=== PATIENT | male | born 1960 | race American Indian/Alaskan Native ===

== ENCOUNTER 2017-04-25 17:21 | Inpatient (IN) | payer MEDICAID, OTHER ==
--- NOTE | 2017-04-25 18:18 | C.PDOC ---
History Of Present Illness 56 year old male presents to the ED with complaints of chest pain beginning today that radiates to the left arm and hand. Patient also notes a "cramping" abdominal pain beginning a few days ago that is secondary to ulcers with nausea and vomiting. He states he has not taken his zantac. Patient admits to being at [facility] [place] earlier today for a "mental breakdown" when he began to feel chest pain while in the bathroom that he described as a 20/10 but became a 8/10 upon arrival to [facility] ED. He also admits to having 3 24oz beers today and suicidal ideations. Patient states he has not eaten in 8 days and wants to hurt himself by staving himself and he has done it before. He has a history of depression, HTN, CHF, Ulcers, Bipolar, Schizophrenia, and an NV in 2008. Patient denies any homicidal ideations or other complaints at this time. Time Seen by Provider: 04/25/17 17:48 Chief Complaint (Nursing): Chest Pain History Per: Patient History/Exam Limitations: no limitations Onset/Duration Of Symptoms: Hrs (chest pain began today ), Days (abdominal pain ) Current Symptoms Are (Timing): Still Present Past Medical History Reviewed: Historical Data, Nursing Documentation, Vital Signs Vital Signs: Last Vital Signs Temp 97.8 F 04/25/17 20:00 Pulse 94 H 04/25/17 20:00 Resp 16 04/25/17 20:00 BP 105/70 04/25/17 20:00 Pulse Ox 100 04/25/17 20:00 - Medical History PMH: Asthma, CHF, Gastritis, HTN, Seizures (last episode was 08/27/16) - [facility] Procedures DETOXIFICATION SERVICES FOR SUBSTANCE ABUSE TREATMENT (08/28/16) GROUP [employer] ANALYST FOR SUBSTANCE ABUSE TREATMENT, PSYCHOEDUCATION (08/28/16) Family History: States: Unknown Family Hx - Social History Hx Alcohol Use: Yes Hx Substance Use: Yes - Immunization History Hx Tetanus Toxoid Vaccination: No Hx Influenza Vaccination: No Hx Pneumococcal Vaccination: No Review Of Systems Constitutional: Negative for: Chills Cardiovascular: Positive for: Chest Pain, Palpitations Respiratory: Negative for: Cough Gastrointestinal: Positive for: Nausea, Vomiting, Abdominal Pain (epigastric pain ) Musculoskeletal: Positive for: Arm Pain (left arm pain radiating from chest pain ) Neurological: Positive for: Headache Psych: Positive for: Suicidal ideation Physical Exam - Physical Exam Appears: Non-toxic, No Acute Distress Skin: Warm, Dry Head: Atraumatic Eye(s): bilateral: Normal Inspection, PERRL, EOMI Oral Mucosa: Moist Neck: Supple Chest: Symmetrical, No Deformity Cardiovascular: Rhythm Regular Respiratory: Normal Breath Sounds (clear to ausculation bilaterally ), No Rales , No Rhonchi, No Stridor Gastrointestinal/Abdominal: Soft, Tenderness (epigastric tenderness), No Distention, No Guarding, No Rebound Extremity: Normal ROM, No Tenderness, No Calf Tenderness, Capillary Refill ( good capilarry refill, less than 2 seconds ), No Swelling, Other (bilateral pitting edema of the lower extremities ) Pulses: Left Dorsalis Pedis: Normal, Right Dorsalis Pedis: Normal Neurological/Psych: Oriented x3, Normal Speech, Normal Cognition, Normal Cranial Nerves, Normal Motor, Normal Sensation, Normal Reflexes Gait: Steady ED Course And Treatment - Laboratory Results Result Diagrams: 04/25/17 18:38 04/25/17 18:38 Lab Interpretation: Abnormal (etoh 299, tox neg) ECG: Interpreted By Me ECG Rhythm: Sinus Rhythm ECG Interpretation: Normal Rate From EC O2 Sat by Pulse Oximetry: 95 (room air ) Pulse Ox Interpretation: Normal - Radiology CXR: Interpreted by Me CXR Interpretation: Yes: No Acute Disease Reevaluation Time: 00:50 Reassessment Condition: Improved (calm, cooperative, napping.) Medical Decision Making Medical Decision Making: chest discomfort: costochondritis epigastric discomfort: gastritis/stomach ulcers psych: etoh abuse, malingering, ? suicidal 0100: pending Psych dispo, signed over to night MD Disposition Doctor Will See Patient In The: Office Counseled Patient/Family Regarding: Studies Performed, Diagnosis - Disposition Disposition Time: 01:00 Condition: GOOD - Clinical Impression Clinical Impression: Alcohol abuse, Suicidal ideation, Chest discomfort - Scribe Statement The provider has reviewed the documentation as recorded by the Scribjean Suh All medical record entries made by the Scribe were at my direction and personally dictated by me. I have reviewed the chart and agree that the record accurately reflects my personal performance of the history, physical exam, medical decision making, and the department course for this patient. I have also personally directed, reviewed, and agree with the discharge instructions and disposition. Physician Patient Turnover Patient Signed Over To: Ricky Mckinnon Handoff Comments: dispo per Crisis Evaluators.
[2017-04-25 18:52] LABS: BASO # 0.1 K/uL (0.0-0.2); EOS % 0.6 % (0.0-4.0); HEMATOCRIT 41.7 % (35.0-51.0); LYMPH # 1.6 K/uL (1.0-4.3); LYMPH % 52.6 % (20.0-40.0); MEAN CORPUSCULAR HEMOGLOBIN 33.1 pg (27.0-31.0); MEAN PLATELET VOLUME 8.3 fL (7.2-11.7); MONO # 0.5 K/uL (0.0-0.8); MONO % 15.3 % (0.0-10.0); NRBC % 0.1 % (0.0-2.0); RED CELL DISTRIBUTION WIDTH 14.5 % (11.5-14.5)
[2017-04-25 18:54] LABS: CHLORIDE 104 mmol/L (98-107); POTASSIUM 3.7 mmol/L (3.6-5.2); SODIUM 138 mmol/L (132-148)
[2017-04-25 18:56] LABS: BILIRUBIN,TOTAL 0.6 mg/dL (0.2-1.3); GFR AFRICAN-AMERICAN > 60; MEAN CELL VOLUME 100.5 fL (80.0-94.0)
[2017-04-25 18:57] LABS: ALB/GLOB RATIO 1.2 (1.0-2.1); ALKALINE PHOSPHATASE 102 U/L (38-126); ALT/SGPT 95 U/L (21-72); AST/SGOT 76 U/L (17-59); BLOOD UREA NITROGEN 3 mg/dL (9-20); CALCIUM 8.3 mg/dl (8.6-10.4); CARBON DIOXIDE 22 mmol/L (22-30); GLUCOSE,RANDOM 73 mg/dL (75-110); TOTAL PROTEIN 6.9 g/dL (6.3-8.3)
[2017-04-25 18:58] LABS: ALCOHOL SERUM 299 mg/dl (0-10)
[2017-04-25 19:21] LABS: RBC URINE < 1 /hpf (0-3); URINE BILIRUBIN NEGATIVE (NEGATIVE); URINE BLOOD 1+ (NEGATIVE); URINE COLOR Yellow (YELLOW); URINE GLUCOSE (UA) NORMAL (Normal); URINE HYALINE CAST 0-2 /lpf (0-2); URINE KETONE NEGATIVE (NEGATIVE); URINE LEUKOCYTE ESTERASE NEG Leu/uL (Negative); URINE PROTEIN 2+ mg/dL (NEGATIVE); URINE UROBILINOGEN NORMAL mg/dL (0.2-1.0); WBC URINE < 1 /hpf (0-5)
[2017-04-26 05:55] VITALS: O2SAT 99
--- NOTE | 2017-04-26 09:15 | PCM.BM ---
<Helene Patterson - Last Filed: 04/26/17 09:13> Treatment Plan Problems - Problems identified on initial assessmt Suicidal Ideation Date Initiated: 04/26/17 Time Initiated: 09:14 Assessment reference: NA Status: Monitor Priority: 1 Depression Date Initiated: 04/26/17 Time Initiated: 09:15 Assessment reference: NA Status: Active Priority: 2 <StaciKyara - Last Filed: 04/28/17 11:56> Family Contact Family involvement: Patient does not wish Family/SO involvement Family contact: Patient declines to allow family contact at present - Goals for Treatment Patient goals for treatment: "I need an outpatient program." Patient's family/SO goals for treatment: N/A Discharge/Continuing Care - Education Needs Education Needs: Patient Medication, Patient Coping Skills, Patient Community resources - Discharge Discharge Criteria: Tolerates medication w/o severe side effects, No longer exhibiting s/s of withdrawal Discharge to:: Home, With Family - Treatment Team Participation Discussed with Family/SO: No Was Patient/Family/SO present at Treatment Team Meeting: Yes <Bari Chan - Last Filed: 04/29/17 23:06> - Diagnosis (1) Alcohol abuse Status: Acute Interventions: 04/29/17 23:06 * Assess 7x/week regarding severity of withdrawal * Educate regarding risks, benefits, side effects and alternatives of medications * Use Motivational Interviewing for abstinence * Use CBT for relapse prevention * Medication management for withdrawal symptoms * Encourage medication assisted treatment * (2) Suicidal ideation Status: Acute Interventions: 04/29/17 23:06 * Assess/adjust medications daily and /or as needed * Discuss risks, benefits, side effects and alternatives of medications * See patient on an individual basis 7x/week to assess level of suicidal thoughts *
--- NOTE | 2017-04-26 09:34 | RAD ---
PROCEDURE: CHEST RADIOGRAPH, 1 VIEW HISTORY: SOB COMPARISON: Comparison chest dated 08/21/2016 FINDINGS: LUNGS: Clear. PLEURA: No pneumothorax or pleural fluid seen. CARDIOVASCULAR: Normal. OSSEOUS STRUCTURES: No significant abnormalities. VISUALIZED UPPER ABDOMEN: Normal. OTHER FINDINGS: None. IMPRESSION: No active disease.
[2017-04-26] MEDS: Multiple Vitamins Tab PO SCH (14:32)
--- NOTE | 2017-04-26 21:20 | PCM.PSYCH ---
Initial Psychiatric Evaluation - Initial Psychiatric Evaluation Type of Admission: Voluntary Legal Status: Capacity Chief Complaint (in patient's own words): I was depressed and suicidal History of Present Illness and Precipitating Events: Patient is a 56 years old, , -Pakistani male with history of schizoaffective disorder and alcohol use disorder. Patient initially came to ER for chest pain later reported he is depressed and has suicidal ideations with plan to keep him without eating. Patient reported he was following up with a psychiatrist in [facility], last seen in February 2017. Also reported noncompliant with treatment since February 2017. Reported started feeling depressed with decreased sleep and appetite, lost about 50 pounds over last 8 months. Also reported having suicidal ideations with plan to keep him without food. Denied any homicidal ideations. Reported history of 2 suicidal attempts in the past by overdose on pills. His first attempt was few months ago and second attempt was in February 2017. Reported he was admitted to the hospital after both attempts. Also reported hearing voices of his telling him to come be with her. Alcohol: Reported he started drinking alcohol at 19 years of age. Currently he was drinking 7-8, 24 ounces cans of beer daily. Last use reported yesterday. Patient was arrested and was in [facility] from [id number] for assault. Patient also smokes 1-1/2 pack of cigarettes daily and is requesting for nicotine patch. Patient was born in [place]. He has 12th grade of education, not working. His last job was in 2012. Currently on disability. He has 7 grown up children. Lives with his niece. His height is 5 feet 4-1/2 inches and weight is 135 pounds. Current Medications: Active Medications Generic Name Dose Route Start Last Admin Trade Name Vivekq PRN Reason Stop Dose Admin Amlodipine Besylate 5 mg 04/26/17 14:00 04/26/17 14:33 Norvasc PO 5 mg DAILY DAMEON Administration Aspirin 81 mg 04/26/17 14:00 04/26/17 14:32 Ecotrin PO 81 mg DAILY DAMEON Administration Benztropine Mesylate 1 mg 04/26/17 18:00 04/26/17 18:15 Cogentin PO 1 mg BID DAMEON Administration Famotidine 20 mg 04/26/17 18:00 04/26/17 18:15 Pepcid PO 20 mg BID DAMEON Administration Folic Acid 1 mg 04/26/17 13:45 04/26/17 14:33 Folic Acid PO 1 mg DAILY DAMEON Administration Gabapentin 300 mg 04/26/17 18:00 04/26/17 18:15 Neurontin PO 300 mg BID DAMEON Administration Haloperidol 5 mg 04/26/17 18:22 Haldol PO Q6 PRN Agitation Hydroxyzine HCl 25 mg 04/26/17 13:49 Atarax PO Q6 PRN Anxiety Levetiracetam 250 mg 04/26/17 18:00 04/26/17 18:15 Keppra PO 250 mg BID DAMEON Administration [place] Carbonate 300 mg 04/26/17 18:00 04/26/17 18:15 [place] 300mg PO 300 mg BID DAMEON Administration Lorazepam 2 mg 04/26/17 13:45 04/26/17 16:25 Ativan PO 05/01/17 13:44 2 mg Q4 DAMEON Administration Taper Metoprolol Tartrate 50 mg 04/26/17 18:00 04/26/17 19:00 Lopressor PO 50 mg BID DAMEON Administration Multivitamins 1 tab 04/26/17 13:45 04/26/17 14:32 Hexavitamin PO 1 tab DAILY DAMEON Administration Nicotine 1 patch 04/25/17 18:25 04/26/17 09:55 Nicoderm Cq TD 1 patch DAILY DAMEON Administration Pneumococcal Polyvalent Vaccine 0.5 ml 04/29/17 10:00 Pneumovax 23 Vaccine IM 04/29/17 10:01 .ONCE ONE Quetiapine Fumarate 200 mg 04/26/17 22:00 Seroquel PO HS DAMEON Thiamine HCl 100 mg 04/26/17 13:45 04/26/17 14:32 Vitamin B1 Tab PO 100 mg DAILY DAMEON Administration Past Psychiatric History - Past Psychiatric History Previous Treatment History: Inpatient History of Abuse: None reported History of ETOH/Drug Use: See HPI History of Family Illness: Reported his mother committed suicide Pertinent Medical Hx (Current Medical&Sleep Prob, Allergies): Allergies Allergy/AdvReac Type Severity Reaction Status Date / Time iodine Allergy Verified 04/25/17 17:29 Albuterol/Ipratropium [Combivent Respimat] 1 spr IH DAILY 08/28/16 Cyanocobalamin [Vitamin B12 100 mcg Tab] 100 mcg PO DAILY 08/28/16 Dicyclomine [Bentyl] 20 mg PO TID 08/28/16 Folic Acid 1 mg PO DAILY 08/28/16 LORazepam [Ativan] 1 mg PO Q12 08/28/16 [place] 600 mg PO BID 08/28/16 Ondansetron ODT [Zofran ODT] 4 mg PO Q6 PRN 08/28/16 Quetiapine Fumarate [Seroquel] 100 mg PO BID 08/28/16 Quetiapine Fumarate [Seroquel] 100 mg PO DAILY 08/28/16 Ranitidine HCl [Ranitidine 150] 150 mg PO DAILY 08/28/16 Trazodone HCl 150 mg PO HS PRN 08/28/16 hydrOXYzine HCl [Atarax] 50 mg PO BID 08/28/16 Aspirin [Adult Low Dose Aspirin EC] 81 mg PO DAILY #30 tablet.dr 09/02/16 Benztropine [Cogentin] 2 mg PO BID #60 tab 09/02/16 Famotidine [Pepcid] 20 mg PO BID #60 tab 09/02/16 Gabapentin [Neurontin] 300 mg PO TID #90 cap 09/02/16 Haloperidol [Haldol] 10 mg PO BID #60 tab 09/02/16 [place] Carbonate [Lithobid] 300 mg PO BID #60 ter 09/02/16 Metoprolol Tartrate [Lopressor] 50 mg PO BID #60 tab 09/02/16 QUEtiapine [SEROquel] 300 mg PO HS #30 tab 09/02/16 amLODIPine [Norvasc] 5 mg PO DAILY #30 tab 09/02/16 levETIRAcetam [Keppra] 250 mg PO AMHS #60 tab 09/02/16 Hypertension Asthma History of Coronary artery disease Seizure disorder Review of Systems - Psychiatric Psychiatric: Depression Mental Status Examination - Personal Presentation Personal Presentation: Looks stated age - Affect Affect: Depressed - Motor Activity Motor Activity: Calm - Reliability in Providing Information Reliability in Providing Information: Fair - Speech Speech: Organized - Mood Mood: Depressed - Formal Thought Process Formal Thought Process: No Impairment - Hallucinations/Delusions Hallucinations: Other (None reported) Delusions: Other - Obsessions/Compulsions Obsessions: None Compulsions: None - Cognitive Functions Orientation: Person, Place, Situation, Time Sensorium: Alert Attention/Concentration: Attentive Abstract Thinking: [place] Estimate of Intelligence: Average Judgement: Intact, as evidence by: Insight regarding need for hospitalization Memory: Recent intact, as evidence by: 3/3 object recall, Remote intact, as evidenced by: Ability to recall historical events - Risk Risk: Withdrawal, Diminished functioning - Strength & Assets Inventory Strength & Assets Inventory: Cooperative - Limitations Limitations: Other DSM 5 DX - DSM 5 DSM 5 Diagnosis: Alcohol use disorder severe Alcohol withdrawal Schizoaffective disorder depressive type - Recommended/Plan of Treatment Treatment Recommendations and Plan of Treatment: Patient education Supportive therapy Will start medications, patient was discharged on after his last admission at [facility] When necessary medications Medications for his seizure and other medical problems. Projected ELOS: 8-10 days - Smoking Cessation Smoking Cessation Initiated: Yes
[2017-04-27] MEDS: Multiple Vitamins Tab PO SCH (09:43)
--- NOTE | 2017-04-27 13:00 | PCM.PYCHPN ---
Psychiatric Progress Note - Psychiatric Progress Note Patient seen today, length of contact: 16 min Patient Chief Complaint: "I can't sleep well" Problems Identified/Issues Discussed: The pt is seen, chart reviewed, case discussed with staff. The pt is compliant with medications and reports no side-effects. Symptoms are improving but needs more time to stabilize. Still hearing voices After care discussed, support and psychoeducation given. Medication Change: Yes Medical Record Reviewed: Yes Mental Status Examination - Cognitive Function Orientation: Person, Place, Situation, Time Memory: Intact Attention: WNL Concentration: WNL Association: WNL Fund of Knowledge: WNL - Mood Mood: Depressed - Affect Affect: Constricted, Depressed - Speech Speech: Appropriate - Formal Thought Process Formal Thought Process: No Impairment - Suicidal Ideation Suicidal Ideation: No - Homicidal Ideation Homicidal Ideation: No Goal/Treatment Plan - Goal/Treatment Plan Need for Continued Stay: Discharge may exacerbated symptoms, Severe functional impairment Progress Toward Problem(s) and Goals/Treatment Plan: Continue medications Support and psychoeducation daily Attend groups and activities daily After care planning by KYLE Estimated Date of D/C: 05/02/17
[2017-04-28] MEDS: Multiple Vitamins Tab PO SCH (10:32)
--- NOTE | 2017-04-28 12:34 | CARD ---
APPROVED REPORT EKG Measurement Heart [id number] <Conclusion> Normal sinus rhythm Possible Left atrial enlargement Left axis deviation Abnormal ECG
--- NOTE | 2017-04-28 16:46 | PCM.PYCHPN ---
Psychiatric Progress Note - Psychiatric Progress Note Patient seen today, length of contact: 16 min Patient Chief Complaint: "I couldn't sleep last night" Problems Identified/Issues Discussed: The pt is seen, chart reviewed, case discussed with staff. Pt states that he had auditory and visual hallucinations all night, and could not sleep. He reports of some shakes, abdominal cramps, and vomiting. Patient is paranoid, but denies any suicidal or homicidal ideations. The pt is compliant with medications and reports no side-effects. Symptoms are improving but needs more time to stabilize. After care discussed, support and psychoeducation given. Medication Change: Yes Medical Record Reviewed: Yes Mental Status Examination - Cognitive Function Orientation: Person, Place, Situation, Time Memory: Intact Attention: WNL Concentration: WNL Association: WNL Fund of Knowledge: WNL - Mood Mood: Depressed - Affect Affect: Constricted, Depressed - Speech Speech: Appropriate - Formal Thought Process Formal Thought Process: No Impairment - Suicidal Ideation Suicidal Ideation: No - Homicidal Ideation Homicidal Ideation: No Goal/Treatment Plan - Goal/Treatment Plan Need for Continued Stay: Discharge may exacerbated symptoms, Severe functional impairment Progress Toward Problem(s) and Goals/Treatment Plan: Continue medications Support and psychoeducation daily Attend groups and activities daily After care planning by KYLE Estimated Date of D/C: 05/02/17
[2017-04-29] MEDS ORDERED: Pneumococcal 23-Valent Vaccine IM ONE (10:00)
[2017-04-29] MEDS: Multiple Vitamins Tab PO SCH (10:04)
--- NOTE | 2017-04-29 18:58 | PCM.PYCHPN ---
Psychiatric Progress Note - Psychiatric Progress Note Patient seen today, length of contact: 16 min Patient Chief Complaint: I am hearing voices.' Problems Identified/Issues Discussed: Patient seen and evaluated, chart reviewed and discussed with the nurse. Patient remained somewhat disorganized and internally preoccupied. He remained isolated and withdrawn and still appears disheveled and unkempt. He remained suspicious, paranoid and psychotic. He reports that, 'I am still hearing voices to kill myself.' However he remained calm and cooperative and taking medication and denies any side effects. Supportive therapy and psychoeducation were given. Medication Change: No Medical Record Reviewed: Yes Mental Status Examination - Cognitive Function Orientation: Person, Place, Situation, Time Memory: Intact Attention: WNL Concentration: Poor Association: WNL Fund of Knowledge: Poor - Mood Mood: Depressed, Anxious - Affect Affect: Constricted, Depressed - Speech Speech: Appropriate - Formal Thought Process Formal Thought Process: Hallucinations, Delusions, Paranoia, Loosening of associations - Suicidal Ideation Suicidal Ideation: No - Homicidal Ideation Homicidal Ideation: No Goal/Treatment Plan - Goal/Treatment Plan Need for Continued Stay: Discharge may exacerbated symptoms, Severe functional impairment Progress Toward Problem(s) and Goals/Treatment Plan: Schizoaffective disorder: CBT Psychoeducation Supportive therapy, group therapy, individual therapy Seroquel 300 mg PO QHS Neurontin 300 mg by mouth 3 times a day Trazodone 100 mg by mouth daily at bedtime [place] 300 mg PO BID Alcohol: CBT Psychoeducation Supportive therapy, individual therapy Use [place] for abstinence Librium TAPER Librium when necessary Folic acid/thiamine/multivitamin H/O Seizure d/o Continue Keppra 250 mg PO BID HTN Continue Amlodipine Estimated Date of D/C: 05/02/17 - Smoking Cessation Smoking Cessation Initiated: No
[2017-04-30] MEDS: Multiple Vitamins Tab PO SCH (10:54)
[2017-04-30] MEDS ORDERED: Albuterol HFA 90 mcg/actuation (8 g) INH PRN (15:49)
--- NOTE | 2017-04-30 15:56 | PCM.PYCHPN ---
Psychiatric Progress Note - Psychiatric Progress Note Patient seen today, length of contact: 16 min Patient Chief Complaint: "I am still hearing voices." Problems Identified/Issues Discussed: Patient seen and evaluated, chart reviewed and discussed with the nurse. Today pt still reports of hearing voices telling him to kill himself and reports of seeing shadows. He remained calm and cooperative. He remained isolated and withdrawn and still appears disheveled and unkempt. He is taking medication and denies any side effects. He needs more time for stabilization. Supportive therapy and psychoeducation were given. Medication Change: Yes (start prolixin) Medical Record Reviewed: Yes Mental Status Examination - Cognitive Function Orientation: Person, Place, Situation, Time Memory: Intact Attention: WNL Concentration: Poor Association: WNL Fund of Knowledge: Poor - Mood Mood: Depressed, Anxious - Affect Affect: Constricted, Depressed - Speech Speech: Appropriate - Formal Thought Process Formal Thought Process: Hallucinations, Delusions, Paranoia, Loosening of associations - Suicidal Ideation Suicidal Ideation: No - Homicidal Ideation Homicidal Ideation: No Goal/Treatment Plan - Goal/Treatment Plan Need for Continued Stay: Discharge may exacerbated symptoms, Severe functional impairment Progress Toward Problem(s) and Goals/Treatment Plan: Schizoaffective disorder: CBT Psychoeducation Supportive therapy, group therapy, individual therapy Seroquel 300 mg PO QHS Neurontin 300 mg by mouth 3 times a day Trazodone 100 mg by mouth daily at bedtime [place] 300 mg PO BID Prolixin 5 mg PO BID Alcohol: CBT Psychoeducation Supportive therapy, individual therapy Use [place] for abstinence Librium TAPER Librium when necessary Folic acid/thiamine/multivitamin H/O Seizure d/o Continue Keppra 250 mg PO BID HTN Continue Amlodipine Estimated Date of D/C: 05/02/17 - Smoking Cessation Smoking Cessation Initiated: No
[2017-05-01] MEDS: Multiple Vitamins Tab PO SCH (09:53)
--- NOTE | 2017-05-01 13:29 | PCM.PYCHPN ---
Psychiatric Progress Note - Psychiatric Progress Note Patient seen today, length of contact: 16 min Patient Chief Complaint: My back hurts Problems Identified/Issues Discussed: Patient seen and evaluated with medical student present, chart reviewed and discussed with the nurse. Patient reports increased depression. States that he had hallucinations, hearing his and daughters voices and seeing shadows, last night. Patient reports that pain medications are not strong enough for his back pain. Patient requests stronger pain meds. Patients states that he was on Zoloft and Vistaril outpatient, has not been given those meds since admission, and wants them. Patient is compliant with medications and denies side effects. Denies SI/HI. Supportive therapy and psychoeducation were given. Medication Change: Yes (Increase prolixin) Medical Record Reviewed: Yes Mental Status Examination - Cognitive Function Orientation: Person, Place, Situation, Time Memory: Intact Attention: WNL Concentration: Poor Association: WNL Fund of Knowledge: Poor - Mood Mood: Depressed, Anxious - Affect Affect: Constricted, Depressed - Speech Speech: Appropriate - Formal Thought Process Formal Thought Process: Hallucinations, Delusions, Paranoia, Loosening of associations - Suicidal Ideation Suicidal Ideation: No - Homicidal Ideation Homicidal Ideation: No Goal/Treatment Plan - Goal/Treatment Plan Need for Continued Stay: Discharge may exacerbated symptoms, Severe functional impairment Progress Toward Problem(s) and Goals/Treatment Plan: Schizoaffective disorder: CBT Psychoeducation Supportive therapy, group therapy, individual therapy Seroquel 300 mg PO QHS Neurontin 300 mg by mouth 3 times a day Trazodone 100 mg by mouth daily at bedtime [place] 300 mg PO BID Prolixin 5 mg po Daily Prolixin 10 mg po QHS Alcohol: CBT Psychoeducation Supportive therapy, individual therapy Use [place] for abstinence Librium TAPER Librium when necessary Folic acid/thiamine/multivitamin H/O Seizure d/o Continue Keppra 250 mg PO BID HTN Continue Amlodipine Estimated Date of D/C: 05/02/17 - Smoking Cessation Smoking Cessation Initiated: No
[2017-05-02] MEDS: Multiple Vitamins Tab PO SCH (09:42)
--- NOTE | 2017-05-02 11:42 | PCM.PYCHPN ---
Psychiatric Progress Note - Psychiatric Progress Note Patient seen today, length of contact: 16 min Patient Chief Complaint: My back hurts Problems Identified/Issues Discussed: Patient seen and evaluated, chart reviewed and discussed with the nurse. Patient remained depressed and isolated. He still reports AH, voices telling him to kill himself and VH seeing shadows.Patient requests stronger pain meds. He remained disorganized and internally preoccupied. Patient is compliant with medications and denies side effects. Denies SI/HI. Supportive therapy and psychoeducation were given. Medication Change: Yes (increase prolixin) Medical Record Reviewed: Yes Mental Status Examination - Cognitive Function Orientation: Person, Place, Situation, Time Memory: Intact Attention: WNL Concentration: Poor Association: WNL Fund of Knowledge: Poor - Mood Mood: Depressed, Anxious - Affect Affect: Constricted, Depressed - Speech Speech: Appropriate - Formal Thought Process Formal Thought Process: Hallucinations, Delusions, Paranoia, Loosening of associations - Suicidal Ideation Suicidal Ideation: No - Homicidal Ideation Homicidal Ideation: No Goal/Treatment Plan - Goal/Treatment Plan Need for Continued Stay: Discharge may exacerbated symptoms, Severe functional impairment Progress Toward Problem(s) and Goals/Treatment Plan: Schizoaffective disorder: CBT Psychoeducation Supportive therapy, group therapy, individual therapy Seroquel 300 mg PO QHS Neurontin 300 mg by mouth 3 times a day Trazodone 100 mg by mouth daily at bedtime [place] 300 mg PO BID Prolixin 10 mg pO BID Alcohol: CBT Psychoeducation Supportive therapy, individual therapy Use [place] for abstinence Librium TAPER Librium when necessary Folic acid/thiamine/multivitamin H/O Seizure d/o Continue Keppra 250 mg PO BID HTN Continue Amlodipine Estimated Date of D/C: 05/02/17
[2017-05-02] MEDS: Tramadol 25 mg PO PRN (17:15)
[2017-05-03] MEDS: Multiple Vitamins Tab PO SCH (09:25)
[2017-05-03] MEDS: Tramadol 25 mg PO PRN (11:24)
--- NOTE | 2017-05-03 22:41 | PCM.PYCHPN ---
Psychiatric Progress Note - Psychiatric Progress Note Patient seen today, length of contact: 16 min Patient Chief Complaint: "I have no complaint" Problems Identified/Issues Discussed: Pt was seen and evaluated. Chart reviewed. Nurse input received that he is compliant with his treatment. He had no new issues. He reported improvement in his mood. He denied SI, HI, intent or plan. He denied A/V/H. He reported his sleep is fine. Medical Problems: HTN Diagnostic Results: none DSM 5 Symptoms Update: Schizophrenia Medication Change: No Medical Record Reviewed: Yes Mental Status Examination - Cognitive Function Orientation: Person, Place, Situation, Time Memory: Intact Attention: WNL Concentration: Poor Association: WNL Fund of Knowledge: Poor - Mood Mood: Depressed - Affect Affect: Constricted, Depressed - Speech Speech: Appropriate - Formal Thought Process Formal Thought Process: No Impairment - Suicidal Ideation Suicidal Ideation: No - Homicidal Ideation Homicidal Ideation: No Goal/Treatment Plan - Goal/Treatment Plan Need for Continued Stay: Discharge may exacerbated symptoms, Severe functional impairment Progress Toward Problem(s) and Goals/Treatment Plan: Continue current treatment and management as per primary team. Therapy in milieu Estimated Date of D/C: 05/02/17 - Smoking Cessation Smoking Cessation Initiated: No
[2017-05-04] MEDS: Multiple Vitamins Tab PO SCH (09:12)
[2017-05-04] MEDS: Tramadol 25 mg PO PRN ×2 (10:55→18:16)
--- NOTE | 2017-05-04 19:25 | PCM.PYCHPN ---
Psychiatric Progress Note - Psychiatric Progress Note Patient seen today, length of contact: 16 min Patient Chief Complaint: "I want percocet" Problems Identified/Issues Discussed: Pt was seen and evaluated. Chart reviewed. Nurse input received that he is compliant with his treatment. He was preoccupied with drugs seeking behavior.He stated that he had cervical stenosis which was surgically corrected and now he is waiting for spinal surgery and he needs percocet. Nurse reported that he is asking multiple times Tramadol for his pain and wants it be schedule medication. Otherwise he had no new psychiatric issues. He reported improvement in his mood. He denied SI, HI, intent or plan. He denied A/V/H. He reported his sleep is fine. Medical Problems: HTN, backache Diagnostic Results: none Medication Change: No Medical Record Reviewed: Yes Mental Status Examination - Cognitive Function Orientation: Person, Place, Situation, Time Memory: Intact Attention: WNL Concentration: Poor Association: WNL Fund of Knowledge: Poor - Mood Additional comments: I'm OK - Affect Affect: Constricted, Depressed - Speech Speech: Appropriate - Formal Thought Process Formal Thought Process: No Impairment Psychotic Thoughts and Behaviors: None reported and he did not appeared internally preoccupied or responding to stimuli - Suicidal Ideation Suicidal Ideation: No - Homicidal Ideation Homicidal Ideation: No Goal/Treatment Plan - Goal/Treatment Plan Need for Continued Stay: Discharge may exacerbated symptoms, Severe functional impairment Progress Toward Problem(s) and Goals/Treatment Plan: Continue current treatment and management as per primary team. Therapy in milieu Psychoeducation was provided regarding narcotic medication usage and addition prperty. Recommend to attend group therapy Estimated Date of D/C: 05/02/17
[2017-05-05] MEDS: Multiple Vitamins Tab PO SCH (09:42)
--- NOTE | 2017-05-05 11:45 | PCM.BM ---
<NichoKyara Mcarthur - Last Filed: 05/05/17 11:45> Treatment Plan Problems - Problems identified on initial assessmt Suicidal Ideation Date Initiated: 04/26/17 Time Initiated: 09:14 Assessment reference: NA Status: Monitor Priority: 1 Depression Date Initiated: 04/26/17 Time Initiated: 09:15 Assessment reference: NA Status: Active Priority: 2 - Milieu Protocol Milieu Narrative: Schizoaffective disorder: CBT Psychoeducation Supportive therapy, group therapy, individual therapy Seroquel 300 mg PO QHS Neurontin 300 mg by mouth 3 times a day Trazodone 100 mg by mouth daily at bedtime [place] 300 mg PO BID Prolixin 5 mg po Daily Prolixin 10 mg po QHS Alcohol: CBT Psychoeducation Supportive therapy, individual therapy Use [place] for abstinence Librium TAPER Librium when necessary Folic acid/thiamine/multivitamin H/O Seizure d/o Continue Keppra 250 mg PO BID HTN Continue Amlodipine Family Contact Family involvement: Patient does not wish Family/SO involvement Family contact: Patient declines to allow family contact at present - Goals for Treatment Patient goals for treatment: "I need an outpatient program." Patient's family/SO goals for treatment: N/A Discharge/Continuing Care - Education Needs Education Needs: Patient Medication, Patient Coping Skills, Patient Community resources - Discharge Discharge Criteria: Tolerates medication w/o severe side effects, No longer exhibiting s/s of withdrawal Discharge to:: Home, With Family - Additional Comments Schizoaffective disorder: CBT Psychoeducation Supportive therapy, group therapy, individual therapy Seroquel 300 mg PO QHS Neurontin 300 mg by mouth 3 times a day Trazodone 100 mg by mouth daily at bedtime [place] 300 mg PO BID Prolixin 5 mg po Daily Prolixin 10 mg po QHS Alcohol: CBT Psychoeducation Supportive therapy, individual therapy Use [place] for abstinence Librium TAPER Librium when necessary Folic acid/thiamine/multivitamin H/O Seizure d/o Continue Keppra 250 mg PO BID HTN Continue Amlodipine - Treatment Team Participation Patient/Family/SO Statement: Schizoaffective disorder: CBT Psychoeducation Supportive therapy, group therapy, individual therapy Seroquel 300 mg PO QHS Neurontin 300 mg by mouth 3 times a day Trazodone 100 mg by mouth daily at bedtime [place] 300 mg PO BID Prolixin 5 mg po Daily Prolixin 10 mg po QHS Alcohol: CBT Psychoeducation Supportive therapy, individual therapy Use [place] for abstinence Librium TAPER Librium when necessary Folic acid/thiamine/multivitamin H/O Seizure d/o Continue Keppra 250 mg PO BID HTN Continue Amlodipine Discussed with Family/SO: No Was Patient/Family/SO present at Treatment Team Meeting: Yes <Lesia Dash - Last Filed: 05/05/17 11:48> - Diagnosis (1) Schizoaffective disorder Status: Acute Interventions: 05/05/17 11:48 Attend groups take meds (2) Alcohol use disorder, severe, dependence Status: Acute Interventions: 05/05/17 11:48 Attend groups Take meds
[2017-05-06 08:13] VITALS: BP 106/73; PULSE 92; RESP 18; TEMP 97.5
--- NOTE | 2017-05-06 09:41 | PCM.PYCHPN ---
Psychiatric Progress Note - Psychiatric Progress Note Patient seen today, length of contact: 16 min Patient Chief Complaint: I am feeling better Problems Identified/Issues Discussed: Patient seen and evaluated, chart reviewed and discussed with the nurse. The patient reports improvement in his mood and denies any feelings of hopelessness and helplessness. He reports improvement in his sleep, but he remained isolated and continued to pace back and forth in the hallways. The pt is compliant with medications and denies any side-effects. Symptoms are improving but needs more time to stabilize. After care discussed, support and psychoeducation given. Medication Change: Yes (Increase prolixin) Medical Record Reviewed: Yes Mental Status Examination - Cognitive Function Orientation: Person, Place, Situation, Time Memory: Intact Attention: WNL Concentration: Poor Association: WNL Fund of Knowledge: Poor - Mood Mood: Depressed, Anxious - Affect Affect: Constricted, Depressed - Speech Speech: Appropriate - Formal Thought Process Formal Thought Process: Paranoia - Suicidal Ideation Suicidal Ideation: No - Homicidal Ideation Homicidal Ideation: No Goal/Treatment Plan - Goal/Treatment Plan Need for Continued Stay: Discharge may exacerbated symptoms, Severe functional impairment Progress Toward Problem(s) and Goals/Treatment Plan: Schizoaffective disorder: CBT Psychoeducation Supportive therapy, group therapy, individual therapy Seroquel 300 mg PO QHS Neurontin 300 mg by mouth 3 times a day Trazodone 100 mg by mouth daily at bedtime [place] 300 mg PO BID Prolixin 5 mg po Daily Prolixin 10 mg po QHS Alcohol: CBT Psychoeducation Supportive therapy, individual therapy Use [place] for abstinence Librium TAPER Librium when necessary Folic acid/thiamine/multivitamin H/O Seizure d/o Continue Keppra 250 mg PO BID HTN Continue Amlodipine Estimated Date of D/C: 05/02/17 - Smoking Cessation Smoking Cessation Initiated: No
[2017-05-06] MEDS: Multiple Vitamins Tab PO SCH (09:45)
--- NOTE | 2017-05-06 09:47 | PCM.PYCHDC ---
Mental Status Examination - Mental Status Examination Orientation: Person, Place, Situation, Time Memory: Intact Mood: Neutral Affect: Constricted Speech: Soft Attention: WNL Concentration: WNL Association: WNL Fund of Knowledge: WNL Formal Thought Process: No Impairment Description of patient's judgement and insight: good, fair Psychotic Thoughts and Behaviors: denies any AVH Suicidal Ideation: No Current Homicidal Ideation?: No Discharge Summary - Discharge Note Reason for Hospitalization: Patient is a 56 years old, , -[place] male with history of schizoaffective disorder and alcohol use disorder. Patient initially came to ER for chest pain later reported he is depressed and has suicidal ideations with plan to keep him without eating. Patient reported he was following up with a psychiatrist in [facility], last seen in February 2017. Also reported noncompliant with treatment since February 2017. Reported started feeling depressed with decreased sleep and appetite, lost about 50 pounds over last 8 months. Also reported having suicidal ideations with plan to keep him without food. Denied any homicidal ideations. Reported history of 2 suicidal attempts in the past by overdose on pills. His first attempt was few months ago and second attempt was in February 2017. Reported he was admitted to the hospital after both attempts. Also reported hearing voices of his telling him to come be with her. Alcohol: Reported he started drinking alcohol at 19 years of age. Currently he was drinking 7-8, 24 ounces cans of beer daily. Last use reported yesterday. Patient was arrested and was in shelter from [phone] for assault. Patient also smokes 1-1/2 pack of cigarettes daily and is requesting for nicotine patch. Patient was born in [place]. He has 12th grade of education, not working. His last job was in 2012. Currently on disability. He has 7 grown up children. Lives with his niece. His height is 5 feet 4-1/2 inches and weight is 135 pounds. Consultations:: List each consultation separately and include: 1. Reason for request. 2. Findings. 3. Follow-up Summary of Hospital Course include:: 1. Description of specific treatment plan utilized for patients during their course of treatmen. 2. Summarize the time- course for resolution of acute symptoms and/or regressed behaviors. 3. Describe issues identified and worked on during hospitalization. 4. Describe medication utilized. 5. Describe medical problems identified and treated. 6. Reassessment of suicide risk Summary of Hospital Course: During the course of his stay, patient (pt) started progressively improving and he no longer remained irritable, depressed, suicidal and paranoid. His mood and paranoia were improved and he started attending groups and meetings and started socializing. Patient denied any feelings of hopelessness, helplessness, and worthlessness, denied any problem with the sleep or appetite, denied suicidal ideation or homicidal ideation. Pt denied any auditory or visual hallucinations. Some changes were made in his current medications and patient was discharged on following medications. He tolerated these medications very well and denied any side effects. - Diagnosis (1) Schizoaffective disorder Status: Acute (2) Alcohol use disorder, severe, dependence Status: Acute - Final Diagnosis (DSM 5) Condition upon Discharge: GOOD DSM 5: Schizoaffective disorder depressive type Alcohol use disorder severe Alcohol withdrawal Disposition: HOME/ ROUTINE Follow-up Treatment Plan: Education: Pt was educated and counseled about the risks and benefits of taking and not taking medications. Pt was educated and counseled about the risks of drinking and abusing drugs. Pt was educated and counseled to go to the ER or call 911 if pt develop suicidal ideation or homicidal ideation, worsening of symptoms or severe side effects of the meds. Prescriptions/Medication Reconciliation: Benztropine [Cogentin] 1 mg PO BID #60 tab fluPHENAZine [Prolixin] 10 mg PO BID #60 tab levETIRAcetam [Keppra] 250 mg PO BID #60 tab [place] Carbonate [[place] Carbonate 300MG] 300 mg PO BID #60 cap QUEtiapine [Seroquel] 300 mg PO HS #30 tab Sertraline [Zoloft] 50 mg PO DAILY #30 tab traZODone [Desyrel] 100 mg PO HS PRN #30 tab PRN Reason: Insomnia - Smoking Cessation Smoking Cessation Medication prescribed: No - Antipsychotic Medications Pt discharged on 2 or more routine antipsychotic medications: No
== END 2017-05-06 11:15 | disposition home or self-care (01) | DRG 430 ==
LOC: C.ER 17:21 → C.5E 04-26 06:01
PROC: GZ3ZZZZ Medication Management (ICD-10-PCS; principal; 2017-04-26)
PROC: HZ2ZZZZ Detoxification Services for Substance Abuse Treatment (ICD-10-PCS; 2017-04-26)
PROC: HZ59ZZZ Individual Psychotherapy for Substance Abuse Treatment, Supportive (ICD-10-PCS; 2017-04-26)
PROC: GZHZZZZ Group Psychotherapy (ICD-10-PCS; 2017-04-26)
PROC: GZ56ZZZ Individual Psychotherapy, Supportive (ICD-10-PCS; 2017-04-26)
PROC: HZ46ZZZ Group Counseling for Substance Abuse Treatment, Psychoeducation (ICD-10-PCS; 2017-04-26)
DX: F25.1 Schizoaffective disorder, depressive type (principal); R45.851 Suicidal ideations; F10.239 Alcohol dependence with withdrawal, unspecified; I11.0 Hypertensive heart disease with heart failure; I50.9 Heart failure, unspecified; G40.909 Epilepsy, unspecified, not intractable, without status epilepticus; J45.909 Unspecified asthma, uncomplicated; K25.9 Gastric ulcer, unspecified as acute or chronic, without hemorrhage or perforation; K29.70 Gastritis, unspecified, without bleeding; M48.02 Spinal stenosis, cervical region; M94.0 Chondrocostal junction syndrome [Tietze]; F17.210 Nicotine dependence, cigarettes, uncomplicated; Z79.899 Other long term (current) drug therapy; Z91.19 Patient's noncompliance with other medical treatment and regimen; I25.2 Old myocardial infarction

== ENCOUNTER 2017-05-12 11:50 | Inpatient (IN) | payer MEDICAID, OTHER ==
--- NOTE | 2017-05-12 12:42 | RAD ---
PROCEDURE: CHEST RADIOGRAPH, 1 VIEW HISTORY: Detox/Psy COMPARISON: 04/25/2017 FINDINGS: LUNGS: Clear. PLEURA: No pneumothorax or pleural fluid seen. CARDIOVASCULAR: Normal. OSSEOUS STRUCTURES: No significant abnormalities. VISUALIZED UPPER ABDOMEN: Normal. OTHER FINDINGS: None. IMPRESSION: No active disease.
[2017-05-12 12:53] LABS: BASO % 0.5 % (0.0-2.0); EOS % 0.7 % (0.0-4.0); HEMATOCRIT 40.6 % (35.0-51.0); LYMPH # 2.5 K/uL (1.0-4.3); LYMPH % 38.7 % (20.0-40.0); MEAN CORPUSCULAR HEMOGLOBIN 34.2 pg (27.0-31.0); MEAN CORPUSCULAR HGB CONC 35.2 g/dL (33.0-37.0); MEAN PLATELET VOLUME 7.7 fL (7.2-11.7); MONO # 0.5 K/uL (0.0-0.8); MONO % 8.2 % (0.0-10.0); RED CELL DISTRIBUTION WIDTH 14.5 % (11.5-14.5)
[2017-05-12 12:55] LABS: MEAN CELL VOLUME 97.2 fL (80.0-94.0); WHITE BLOOD COUNT 6.5 K/uL (4.8-10.8)
[2017-05-12 13:07] LABS: CHLORIDE 97 mmol/L (98-107); SODIUM 138 mmol/L (132-148)
[2017-05-12 13:08] LABS: POTASSIUM 4.1 mmol/L (3.6-5.2)
[2017-05-12 13:10] LABS: ALB/GLOB RATIO 1.2 (1.0-2.1); ALKALINE PHOSPHATASE 135 U/L (38-126); ALT/SGPT 44 U/L (21-72); AST/SGOT 37 U/L (17-59); BILIRUBIN,TOTAL 0.2 mg/dL (0.2-1.3); BLOOD UREA NITROGEN 4 mg/dL (9-20); CARBON DIOXIDE 22 mmol/L (22-30); GFR AFRICAN-AMERICAN > 60; GLUCOSE,RANDOM 83 mg/dL (75-110); TOTAL PROTEIN 7.5 g/dL (6.3-8.3)
--- NOTE | 2017-05-12 13:10 | C.PDOC ---
History Of Present Illness Patient is a 57 year old male, whose past medical history includes asthma, hypercholesterolemia, hypertension, ulcers, severe cervical radiculopathy, bipolar disorder, depression, schizophrenia, and alcoholism, presents to the Emergency Department for evaluation of depression, and suicidal ideation. Patient states it [birth year] his birthday yesterday, and felt suicidal because he does not want to live past age 56. States he felt angry, depressed, and was hearing voices to hurt himself. Notes that he lives with his daughter, who asked him to call 911 today. Patient admits to drinking alcohol today. Otherwise, denies any chest pain, palpitations, shortness of breath, headache, dizziness, neck pain, fever, chills, or any other associated symptoms at this time. Time Seen by Provider: 05/12/17 12:02 Chief Complaint (Nursing): Psychiatric Evaluation History Per: Patient History/Exam Limitations: no limitations Onset/Duration Of Symptoms: Days (1), Gradual Current Symptoms Are (Timing): Still Present Suicide/Self Injury Attempted (Context): None Modifying Factor(s): Alcohol Severity: None Pain Scale Rating Of: 0 Associated Symptoms: Depression, Suicidal Thoughts Involuntary Hold By: None Recent travel outside of the [place]: No Additional History Per: Patient Past Medical History Reviewed: Historical Data, Nursing Documentation, Vital Signs Vital Signs: Last Vital Signs Temp 98.2 F 05/12/17 11:56 Pulse 121 H 05/12/17 15:05 Resp 19 05/12/17 15:05 BP 131/87 05/12/17 15:05 Pulse Ox 98 05/12/17 15:05 - Medical History PMH: Anxiety, Asthma, CHF, Gastritis, HTN, Seizures (last episode was 08/27/16) Denies: Diabetes, Hepatitis, HIV, Chronic Kidney Disease, Sexually Transmitted Disease - [facility] Procedures DETOXIFICATION SERVICES FOR SUBSTANCE ABUSE TREATMENT (04/26/17) GROUP RAISE DRILLER FOR SUBSTANCE ABUSE TREATMENT, PSYCHOEDUCATION (04/26/17) GROUP PSYCHOTHERAPY (04/26/17) INDIV PSYCHOTHERAPY FOR SUBSTANCE ABUSE TREATMENT, SUPPORT (04/26/17) INDIVIDUAL PSYCHOTHERAPY, SUPPORTIVE (04/26/17) MEDICATION MANAGEMENT (04/26/17) Family History: States: Unknown Family Hx - Social History Hx Alcohol Use: Yes Hx Substance Use: Yes - Immunization History Hx Tetanus Toxoid Vaccination: No Hx Influenza Vaccination: No Hx Pneumococcal Vaccination: No Review Of Systems Except As Marked, All Systems Reviewed And Found Negative. Constitutional: Negative for: Fever, Chills Cardiovascular: Negative for: Chest Pain, Palpitations Respiratory: Negative for: Cough, Shortness of Breath Gastrointestinal: Negative for: Nausea, Vomiting Skin: Negative for: Rash, Bruising Neurological: Negative for: Headache, Dizziness Psych: Positive for: Depression, Suicidal ideation Physical Exam - Physical Exam Appears: Non-toxic, No Acute Distress, Other (tremulous, EtOH on breath ) Skin: Normal Color, Warm, Dry Head: Atraumatic, Normacephalic Eye(s): bilateral: Normal Inspection Oral Mucosa: Moist Neck: Normal ROM, Supple Cardiovascular: Rhythm Regular, No Murmur Respiratory: Normal Breath Sounds, No Rales, No Rhonchi, No Wheezing Gastrointestinal/Abdominal: Soft, No Tenderness Extremity: Bilateral: Atraumatic (no signs of trauma), Normal ROM Neurological/Psych: Oriented x3 (awake, alert), Normal Speech, Normal Cognition , Other (calm, cooperative) ED Course And Treatment - Laboratory Results Result Diagrams: 05/12/17 12:48 05/12/17 12:48 O2 Sat by Pulse Oximetry: 97 (RA) Pulse Ox Interpretation: Normal Medical Decision Making Medical Decision Making: Impression: 57 year old male presents to the Emergency Department for evaluation of depression, and suicidal ideation. Plan: * Blood work * Urinalysis * EKG * CXR * Crisis evaluation * Reassess and dispo Progress note: On reassessment, patient is resting comfortably, no signs of acute distress. Pending crisis evaluation Disposition Counseled Patient/Family Regarding: Studies Performed, Diagnosis - Disposition Disposition: HOSPITALIZED Disposition Time: 18:31 Condition: GUARDED - Clinical Impression Clinical Impression: Manic bipolar I disorder - Scribe Statement The provider has reviewed the documentation as recorded by the Erumibjean Dinh All medical record entries made by the Erumibjean were at my direction and personally dictated by me. I have reviewed the chart and agree that the record accurately reflects my personal performance of the history, physical exam, medical decision making, and the department course for this patient. I have also personally directed, reviewed, and agree with the discharge instructions and disposition. Decision To Admit - Pt Status Changed To: Hospital Disposition Of: Inpatient - Admit Certification Admit to Inpatient:: After my assessment, the patient will require hospitalization for at least two midnights. This is because of the severity of symptoms shown, intensity of services needed, and/or the medical risk in this patient being treated as an outpatient. - InPatient: Physician Admission Certification: I certify that this patient requires 2 or more midnights of care for the following reason:: needs inpatient psych - . Bed Request Type: Psychiatry Admitting Physician: Zack Gramajo Patient Diagnosis: Manic bipolar I disorder, Alcohol abuse
[2017-05-12 13:11] LABS: ALCOHOL SERUM 299 mg/dl (0-10); CALCIUM 8.2 mg/dl (8.6-10.4)
[2017-05-12 13:20] LABS: URINE BILIRUBIN NEGATIVE (NEGATIVE); URINE BLOOD 1+ (NEGATIVE); URINE COLOR Colorless (YELLOW); URINE GLUCOSE (UA) NORMAL (Normal); URINE KETONE NEGATIVE (NEGATIVE); URINE LEUKOCYTE ESTERASE NEG Leu/uL (Negative); URINE PROTEIN 1+ mg/dL (NEGATIVE); URINE UROBILINOGEN NORMAL mg/dL (0.2-1.0); WBC URINE < 1 /hpf (0-5)
--- NOTE | 2017-05-12 19:26 | PCM.BM ---
<Vaishnavi Diamond - Last Filed: 05/12/17 19:26> Treatment Plan Problems - Problems identified on initial assessmt Auditory Hallucinations Date Initiated: 05/12/17 Time Initiated: 19:25 Assessment reference: NA Status: Active ETOH Abuse Date Initiated: 05/12/17 Time Initiated: 19:27 Assessment reference: NA Status: Active Comment: ETOH level 299 Treatment assets and liabiliti Patient Assests: cooperative, negotiates basic needs Patient Liabilities: financial problems, substance abuse - Milieu Protocol Maintain good personal hygiene: daily Encourage regular showers, daily Remind patient to perform daily oral care Conduct patient checks and document Observation sheet: Q15 minutes Maintain personal safety: every shift Educate patient to report safety concerns to staff, every shift Monitor environment for contraband/sharps Medication safety: Monitor for expected outcome, potential side effects: every shift, Assess barriers to learning: every shift, Assess readiness for medication education: every shift <Lesia Dash - Last Filed: 05/14/17 10:25> - Diagnosis (1) Schizoaffective disorder Status: Acute Interventions: 05/14/17 10:26 * Assess/adjust medications daily and /or as needed * See patient on an individual basis 7x/week to assess status of hallucinations * Discuss risks, benefits, side effects and alternatives of medications (2) Alcohol use disorder, severe, dependence Status: Acute Interventions: 05/14/17 10:26 * Assess 7x/week regarding severity of withdrawal * Educate regarding risks, benefits, side effects and alternatives of medications * Use Motivational Interviewing for abstinence * Use CBT for relapse prevention * Medication management for withdrawal symptoms * Encourage medication assisted treatment <Kyara Small - Last Filed: 05/14/17 10:46> Family Contact Family involvement: Family/SO is involved Family contact: Patient declines to allow family contact at present - Goals for Treatment Patient goals for treatment: "I want to go to rehab." Discharge/Continuing Care - Education Needs Education Needs: Patient Medication, Patient Coping Skills, Patient Placement options, Patient Community resources - Discharge Discharge Criteria: Tolerates medication w/o severe side effects, Reduction of target symptoms Discharge to:: Substance Abuse Rehab - Treatment Team Participation Discussed with Family/SO: No Was Patient/Family/SO present at Treatment Team Meeting: Yes
--- NOTE | 2017-05-13 08:10 | CARD ---
APPROVED REPORT EKG Measurement Heart [id number] <Conclusion> Sinus tachycardia Possible Left atrial enlargement Left axis deviation Abnormal ECG
[2017-05-13] MEDS: Multiple Vitamins Tab PO SCH (09:59)
--- NOTE | 2017-05-13 14:28 | PCM.PSYCH ---
Initial Psychiatric Evaluation - Initial Psychiatric Evaluation Type of Admission: Voluntary Legal Status: Capacity Chief Complaint (in patient's own words): I was feeling depressed and suicidal.' History of Present Illness and Precipitating Events: Patient is a 57 y.o. M admitted for depression and suicidal ideations. Patient left the psychiatric unit on Friday05/06/17 after being treated for shiczoaffective disorder. Patient reports feeling ready to leave when he left the hospital but realized he was not after he left. Patient reports that he stopped taking medication after 2 days. When asked why, the patient said on Friday he went for a screening and they gave him an appointment with a psychiatrist on 05/22/17 and he felt that was too far away. Patient reports feeling nothing was getting done because he wanted to attend rehab and see a psychiatrist after he left the hospital last time but that did not happen. Patient began feeling "emotionally depressed" and stopped taking his medications. Patient relapsed on drinking on Friday05/09/17, 8-10 25 oz beer can and a pint of vodka every day, last consumption of alcohol was yesterday. Patient lives with daughter. and another daughter in 2012 29 days apart. Patient started hearing voices of his and daughter on Friday05/10/17 and they told him to kill himself and get it over with. Patient's daughter found him on Friday05/11/17 with a "bunch of pills" in his hands as patient was attempting suicide. Patient's daughter called for an ambulance yesterday because she "was tired of her father." Patient is isolated and withdrawn. Patient reports SI and auditory hallucinations currently and feelings of hopelessness and helplessness. Patient reports racing thoughts such as "really need help" "nobody is helping" and "I want help" and says he wants to "give up" since no one is helping. Patient has hand tremors and complains of joint pain. Patient reports being irritated and anxious. Patient reports visual hallucinations yesterday but not currently. Patient reports feelings of his daughter and following him and "haunting" him. Patient denies any drug use. PMH Hyperlipidemia, HTN, Gastric Ulcer, Asthma, Seizures, Cervical Radiculopathy Current Medications: Active Medications Generic Name Dose Route Start Last Admin Trade Name Freq PRN Reason Stop Dose Admin Albuterol 1 puff 05/12/17 19:20 Ventolin Hfa 90 Mcg/Actuation (8 G) INH RQ4 PRN Shortness of Breath Benztropine Mesylate 1 mg 05/12/17 19:41 05/12/17 19:51 Cogentin PO 1 mg Q6 PRN Administration EPS Chlordiazepoxide 25 mg 05/13/17 00:00 05/13/17 12:07 Librium PO 05/16/17 23:59 25 mg Q6 DAMEON Administration Taper Chlordiazepoxide 50 mg 05/12/17 20:13 05/12/17 22:15 Librium PO 50 mg Q4H PRN Administration Alcohol Withdrawal Fluphenazine HCl 5 mg 05/12/17 19:41 05/12/17 19:52 Prolixin PO 5 mg Q6 PRN Administration hearing voices Folic Acid 1 mg 05/13/17 10:00 05/13/17 09:59 Folic Acid PO 1 mg DAILY DAMEON Administration Levetiracetam 250 mg 05/13/17 10:00 05/13/17 09:59 Keppra PO 250 mg BID DAMEON Administration Multivitamins 1 tab 05/13/17 10:00 05/13/17 09:59 Hexavitamin PO 1 tab DAILY DAMEON Administration Nicotine 1 patch 05/12/17 15:15 05/13/17 09:59 Nicoderm Cq TD 1 patch DAILY DAMEON Administration Ondansetron HCl 4 mg 05/12/17 19:21 05/12/17 19:33 Zofran Tab PO 4 mg Q6 PRN Administration Nausea/Vomiting Thiamine HCl 100 mg 05/13/17 10:00 05/13/17 09:59 Vitamin B1 Tab PO 100 mg DAILY DAMEON Administration Trazodone HCl 50 mg 05/12/17 19:17 05/12/17 22:15 Desyrel PO 50 mg HS PRN Administration Insomnia Past Psychiatric History - Past Psychiatric History Previous Treatment History: Inpatient Pertinent Medical Hx (Current Medical&Sleep Prob, Allergies): Allergies Allergy/AdvReac Type Severity Reaction Status Date / Time iodine Allergy Verified 04/25/17 17:29 Albuterol/Ipratropium [Combivent Respimat] 1 spr IH DAILY 08/28/16 Cyanocobalamin [Vitamin B12 100 mcg Tab] 100 mcg PO DAILY 08/28/16 Dicyclomine [Bentyl] 20 mg PO TID 08/28/16 Folic Acid 1 mg PO DAILY 08/28/16 LORazepam [Ativan] 1 mg PO Q12 08/28/16 [place] Carbonate 600 mg PO BID 08/28/16 Ondansetron ODT [Zofran ODT] 4 mg PO Q6 PRN 08/28/16 Quetiapine Fumarate [Seroquel] 100 mg PO BID 08/28/16 Quetiapine Fumarate [Seroquel] 100 mg PO DAILY 08/28/16 Ranitidine HCl [Ranitidine 150] 150 mg PO DAILY 08/28/16 Trazodone HCl 150 mg PO HS PRN 08/28/16 hydrOXYzine HCl [Atarax] 50 mg PO BID 08/28/16 Aspirin [Adult Low Dose Aspirin EC] 81 mg PO DAILY #30 tablet. 09/02/16 Benztropine [Cogentin] 2 mg PO BID #60 tab 09/02/16 Famotidine [Pepcid] 20 mg PO BID #60 tab 09/02/16 Gabapentin [Neurontin] 300 mg PO TID #90 cap 09/02/16 Haloperidol [Haldol] 10 mg PO BID #60 tab 09/02/16 [place] Carbonate [Lithobid] 300 mg PO BID #60 ter 09/02/16 Metoprolol Tartrate [Lopressor] 50 mg PO BID #60 tab 09/02/16 QUEtiapine [SEROquel] 300 mg PO HS #30 tab 09/02/16 amLODIPine [Norvasc] 5 mg PO DAILY #30 tab 09/02/16 levETIRAcetam [Keppra] 250 mg PO AMHS #60 tab 09/02/16 Benztropine [Cogentin] 1 mg PO BID #60 tab 05/06/17 [place] Carbonate [[place] 300MG] 300 mg PO BID #60 cap 05/06/17 QUEtiapine [Seroquel] 300 mg PO HS #30 tab 05/06/17 Sertraline [Zoloft] 50 mg PO DAILY #30 tab 05/06/17 fluPHENAZine [Prolixin] 10 mg PO BID #60 tab 05/06/17 levETIRAcetam [Keppra] 250 mg PO BID #60 tab 05/06/17 traZODone [Desyrel] 100 mg PO HS PRN #30 tab 05/06/17 Review of Systems - Review of Systems All systems: reviewed and no additional remarkable complaints except - Psychiatric Psychiatric: Anxiety, Auditory Hallucinations, Hopelessness, Irritability, Paranoia, Suicidal Ideation, Visual Hallucinations Mental Status Examination - Personal Presentation Personal Presentation: Looks stated age - Affect Affect: Constricted, Depressed - Motor Activity Motor Activity: Calm - Reliability in Providing Information Reliability in Providing Information: Fair - Speech Speech: Organized - Mood Mood: Depressed, Anxious - Formal Thought Process Formal Thought Process: Hallucinations, Delusions, Paranoia - Hallucinations/Delusions Hallucinations: Visual, Auditory Delusions: Persecution - Obsessions/Compulsions Obsessions: No Compulsions: No - Cognitive Functions Orientation: Person, Place, Situation, Time Sensorium: Alert Attention/Concentration: Attentive Abstract Thinking: [place] Estimate of Intelligence: Below average Judgement: Imparied, as evidence by: Poor judgement, Imparied, as evidence by: Lack of insight into illness - Risk Risk: Suicidal, Withdrawal, Diminished functioning - Limitations Limitations: Living alone DSM 5 DX - DSM 5 DSM 5 Diagnosis: Schizoaffective disorder bipolar type Alcohol use disorder severe Alcohol withdrawal - Recommended/Plan of Treatment Treatment Recommendations and Plan of Treatment: -Schizoaffective disorder bipolar type CBT Psychoeducation Supportive therapy, group therapy, individual therapy Fluphenazine 5 mg by mouth twice a day Seroquel 100 mg by mouth daily at bedtime Trazodone 50 mg by mouth daily at bedtime Benztropine 1 mg by mouth twice a day -Alcohol use disorder severe -Alcohol withdrawal uncomplicated CBT Psychoeducation Supportive therapy, individual therapy Librium when necessary Start Librium taper Start folic acid/thiamine/multivitamin - Smoking Cessation Smoking Cessation Initiated: No
[2017-05-13] MEDS ORDERED: Albuterol-Ipratrop 20 mcg/actuation (4 g) IH SCH (15:15)
[2017-05-14] MEDS: Multiple Vitamins Tab PO SCH (10:04)
[2017-05-14] MEDS: Albuterol HFA 90 mcg/actuation (8 g) INH PRN (10:08)
--- NOTE | 2017-05-14 10:46 | PCM.PYCHPN ---
Psychiatric Progress Note - Psychiatric Progress Note Patient seen today, length of contact: 15 min Patient Chief Complaint: I was feeling depressed and suicidal.' Problems Identified/Issues Discussed: Patient seen and evaluated, chart reviewed and discussed with the nurse. Patient remained irritable and agitated. He still reports racing of thoughts and flight of ideas. He remained isolated, confined and withdrawn. Patient reports withdrawal symptoms including nausea, headaches, cramps and sweating. He reports depressed mood and feelings of hopelessness and helplessness. He is taking medication and denies any side effects Supportive therapy and psychoeducation were given. Medication Change: Yes (librium taper) Medical Record Reviewed: Yes Mental Status Examination - Cognitive Function Orientation: Person, Place, Situation, Time Memory: Intact Attention: WNL Concentration: Poor Association: Loose Fund of Knowledge: Poor - Mood Mood: Depressed, Anxious - Affect Affect: Constricted, Depressed - Speech Speech: Soft - Formal Thought Process Formal Thought Process: Hallucinations, Delusions, Paranoia - Suicidal Ideation Suicidal Ideation: No - Homicidal Ideation Homicidal Ideation: No Goal/Treatment Plan - Goal/Treatment Plan Need for Continued Stay: Discharge may exacerbated symptoms, Severe functional impairment Progress Toward Problem(s) and Goals/Treatment Plan: -Schizoaffective disorder bipolar type CBT Psychoeducation Supportive therapy, group therapy, individual therapy D/C Fluphenazine 5 mg by mouth twice a day Start Haldol 5 mg PO BID Increase Seroquel 200 mg by mouth daily at bedtime Increase Trazodone 200 mg by mouth daily at bedtime Benztropine 1 mg by mouth twice a day Increase Sertraline 100 mg PO Daily Start [place] 300 mg PO BID -Alcohol use disorder severe -Alcohol withdrawal uncomplicated CBT Psychoeducation Supportive therapy, individual therapy Librium when necessary Librium taper Folic acid/thiamine/multivitamin - Smoking Cessation Smoking Cessation Initiated: No
[2017-05-15] MEDS: Multiple Vitamins Tab PO SCH (09:40)
--- NOTE | 2017-05-15 14:43 | PCM.PYCHPN ---
Psychiatric Progress Note - Psychiatric Progress Note Patient seen today, length of contact: 15 min Patient Chief Complaint: I was feeling depressed and suicidal.' Problems Identified/Issues Discussed: Patient seen and evaluated, chart reviewed and discussed with the nurse. As per the staff, patient remained isolated, confined and withdrawn. Patient still reports withdrawal symptoms including nausea, headaches, and sweating. He reports depressed mood and feelings of hopelessness and helplessness. He is taking medication and denies any side effects. He is still reporting AH. He needs more time for stabilization. Supportive therapy and psychoeducation were given. Medication Change: Yes (librium taper, increase seroquel) Medical Record Reviewed: Yes Mental Status Examination - Cognitive Function Orientation: Person, Place, Situation, Time Memory: Intact Attention: WNL Concentration: Poor Association: WNL Fund of Knowledge: Poor - Mood Mood: Depressed, Anxious - Affect Affect: Constricted, Depressed - Speech Speech: Soft - Formal Thought Process Formal Thought Process: Hallucinations, Delusions, Paranoia - Suicidal Ideation Suicidal Ideation: No - Homicidal Ideation Homicidal Ideation: No Goal/Treatment Plan - Goal/Treatment Plan Need for Continued Stay: Discharge may exacerbated symptoms, Severe functional impairment Progress Toward Problem(s) and Goals/Treatment Plan: -Schizoaffective disorder bipolar type CBT Psychoeducation Supportive therapy, group therapy, individual therapy D/C Fluphenazine 5 mg by mouth twice a day Start Haldol 5 mg PO BID Seroquel 100 mg PO Daily Increase Seroquel 200 mg by mouth daily at bedtime Increase Trazodone 200 mg by mouth daily at bedtime Benztropine 1 mg by mouth twice a day Sertraline 100 mg PO Daily [place] 300 mg PO BID -Alcohol use disorder severe -Alcohol withdrawal uncomplicated CBT Psychoeducation Supportive therapy, individual therapy Librium when necessary Librium taper Folic acid/thiamine/multivitamin - Smoking Cessation Smoking Cessation Initiated: No
[2017-05-16] MEDS: Multiple Vitamins Tab PO SCH (09:04)
[2017-05-16 09:41] VITALS: O2SAT 99
--- NOTE | 2017-05-16 14:01 | PCM.PYCHPN ---
Psychiatric Progress Note - Psychiatric Progress Note Patient seen today, length of contact: 16 min Patient Chief Complaint: The pt is seen, chart reviewed, case discussed with staff. The pt is compliant with medications and reports no side-effects. Symptoms are improving but needs more time to stabilize. After care discussed, support and psychoeducation given. he is calling rehabs Medication Change: No Medical Record Reviewed: Yes Mental Status Examination - Cognitive Function Orientation: Person, Place, Situation, Time Memory: Intact Attention: WNL Concentration: Poor Association: WNL Fund of Knowledge: Poor - Mood Mood: Depressed, Anxious - Affect Affect: Constricted, Depressed - Speech Speech: Soft - Formal Thought Process Formal Thought Process: Paranoia - Suicidal Ideation Suicidal Ideation: No - Homicidal Ideation Homicidal Ideation: No Goal/Treatment Plan - Goal/Treatment Plan Need for Continued Stay: Discharge may exacerbated symptoms, Severe functional impairment Progress Toward Problem(s) and Goals/Treatment Plan: Continue medications Support and psychoeducation daily Attend groups and activities daily After care planning by - Inpatient rehab Estimated Date of D/C: 05/21/17
[2017-05-17] MEDS: Multiple Vitamins Tab PO SCH (09:06)
--- NOTE | 2017-05-17 21:44 | PCM.PYCHPN ---
Psychiatric Progress Note - Psychiatric Progress Note Patient seen today, length of contact: 16 min Patient Chief Complaint: I need pain med Problems Identified/Issues Discussed: Patient was seen. Chart was reviewed important content noted. Nurse input received. Patient has no new complaints except pain in back and in neck area. Pt has pain med seeking behavior. He is intrusive and needs redirection. No events overnight. Patient slept well and is eating well. Patient denies any depressive symptoms. Denies suicidal or homicidal ideations. Patient does not report hallucinations. No delusions elicited. No paranoia elicited. Patient has remained in good clinical and behavioral control. Patient is finding medications beneficial and would like to continue with treatment plan. Patient appreciated that treatment team is trying to help. Diagnostic Results: No new result DSM 5 Symptoms Update: Schizoaffective disorder bipolar type Alcohol use disorder severe Alcohol withdrawal Medication Change: No Medical Record Reviewed: Yes Mental Status Examination - Cognitive Function Orientation: Person, Place, Situation, Time Memory: Intact Attention: WNL Concentration: WNL Association: WNL Fund of Knowledge: Poor Decription of patient's judgement and insights: limited/limited Addtional comments: Pt is intrusive and needs redirection - Mood Mood: Depressed, Anxious - Affect Affect: Constricted, Depressed - Speech Speech: Soft - Formal Thought Process Formal Thought Process: Paranoia - Suicidal Ideation Suicidal Ideation: No - Homicidal Ideation Homicidal Ideation: No Goal/Treatment Plan - Goal/Treatment Plan Need for Continued Stay: Discharge may exacerbated symptoms, Severe functional impairment Progress Toward Problem(s) and Goals/Treatment Plan: Continue current management and medications. Patient educated about risks, benefits, side effects & alternatives of meds. Pt was given an opportunity to ask questions. Pt verbalized understanding & agreed with the above. Therapy in milieu. Estimated Date of D/C: 05/21/17 - Smoking Cessation Smoking Cessation Initiated: Yes
[2017-05-18] MEDS: Multiple Vitamins Tab PO SCH (09:13)
[2017-05-18] MEDS ORDERED: Tramadol 25 mg PO ONE (18:47)
--- NOTE | 2017-05-18 21:10 | PCM.PYCHPN ---
Psychiatric Progress Note - Psychiatric Progress Note Patient seen today, length of contact: 16 min Patient Chief Complaint: I need pain med Problems Identified/Issues Discussed: Patient was seen. Chart was reviewed important content noted. Nurse input received. Patient has no new complaints except pain in back and in neck area and ask to start some pain meds. Pt has pain med seeking behavior. He is intrusive and needs redirection. No events overnight. Patient slept well and is eating well. Patient denies any depressive symptoms. Denies suicidal or homicidal ideations. Patient does not report hallucinations. No delusions elicited. No paranoia elicited. Patient has remained in good clinical and behavioral control. Patient is finding medications beneficial and would like to continue with treatment plan. Patient appreciated that treatment team is trying to help. Diagnostic Results: No new result DSM 5 Symptoms Update: Schizoaffective disorder bipolar type Alcohol use disorder severe Alcohol withdrawal Medication Change: Yes (gave one time Tramadol 25 mg for pain) Medical Record Reviewed: Yes Mental Status Examination - Cognitive Function Orientation: Person, Place, Situation, Time Memory: Intact Attention: WNL Concentration: WNL Association: WNL Fund of Knowledge: Poor Decription of patient's judgement and insights: limited/limited - Mood Mood: Depressed, Anxious - Affect Affect: Constricted, Depressed - Speech Speech: Soft - Formal Thought Process Formal Thought Process: Paranoia Psychotic Thoughts and Behaviors: denied A/V/H - Suicidal Ideation Suicidal Ideation: No - Homicidal Ideation Homicidal Ideation: No Goal/Treatment Plan - Goal/Treatment Plan Need for Continued Stay: Discharge may exacerbated symptoms, Severe functional impairment Progress Toward Problem(s) and Goals/Treatment Plan: Continue current management and medications. Patient educated about risks, benefits, side effects & alternatives of meds. Pt was given an opportunity to ask questions. Pt verbalized understanding & agreed with the above. Therapy in milieu. Estimated Date of D/C: 05/21/17
[2017-05-19] MEDS: Multiple Vitamins Tab PO SCH (09:50)
--- NOTE | 2017-05-19 14:24 | PCM.PYCHPN ---
Psychiatric Progress Note - Psychiatric Progress Note Patient seen today, length of contact: 16 min Patient Chief Complaint: I was feeling much better.' Problems Identified/Issues Discussed: Patient seen and evaluated, chart reviewed and discussed with the nurse. As per the staff, patient appear much better than before. He reports improvement in the withdrawal symptoms and improvement in his mood. He is taking medication and denies any side effects. He needs more time for stabilization. Supportive therapy and psychoeducation were given. Medication Change: Yes (gave one time Tramadol 25 mg for pain) Medical Record Reviewed: Yes Mental Status Examination - Cognitive Function Orientation: Person, Place, Situation, Time Memory: Intact Attention: WNL Concentration: WNL Association: WNL Fund of Knowledge: Poor - Mood Mood: Depressed, Anxious - Affect Affect: Constricted, Depressed - Speech Speech: Soft - Formal Thought Process Formal Thought Process: No Impairment - Suicidal Ideation Suicidal Ideation: No - Homicidal Ideation Homicidal Ideation: No Goal/Treatment Plan - Goal/Treatment Plan Need for Continued Stay: Discharge may exacerbated symptoms, Severe functional impairment Progress Toward Problem(s) and Goals/Treatment Plan: -Schizoaffective disorder bipolar type CBT Psychoeducation Supportive therapy, group therapy, individual therapy D/C Fluphenazine 5 mg by mouth twice a day Start Haldol 5 mg PO BID Seroquel 100 mg PO Daily Increase Seroquel 200 mg by mouth daily at bedtime Increase Trazodone 200 mg by mouth daily at bedtime Benztropine 1 mg by mouth twice a day Sertraline 100 mg PO Daily [place] 300 mg PO BID -Alcohol use disorder severe -Alcohol withdrawal uncomplicated CBT Psychoeducation Supportive therapy, individual therapy Librium when necessary Librium taper Folic acid/thiamine/multivitamin Estimated Date of D/C: 05/21/17 - Smoking Cessation Smoking Cessation Initiated: No
[2017-05-19] MEDS ORDERED: Tramadol 25 mg PO ONE (18:15)
[2017-05-19] MEDS: Albuterol HFA 90 mcg/actuation (8 g) INH PRN ×2 (18:54→21:22)
[2017-05-20] MEDS: Multiple Vitamins Tab PO SCH (10:15)
--- NOTE | 2017-05-20 14:00 | PCM.PYCHPN ---
Psychiatric Progress Note - Psychiatric Progress Note Patient seen today, length of contact: 16 min Patient Chief Complaint: "I am feeling OK." Problems Identified/Issues Discussed: Patient seen and evaluated, chart reviewed and discussed with the nurse. Patient states he experiences nightmares about getting hit by a car. Upon questioning, patient admits to wearing nicotine patch during sleep. He reports continued depressed mood and feelings of hopelessness and helplessness. He is still reporting AH; voices are telling him to commit suicide. He is now reporting visual hallucinations of a "man in a black robe" coming into his room. However, no feelings of paranoia or endangerment are associated. Patient denies withdrawal symptoms. The pt is complaint with medications and denies any SE's. He needs more time for stabilization. Supportive therapy and psychoeducation were given. Medication Change: Yes (Increase Haldol) Medical Record Reviewed: Yes Mental Status Examination - Cognitive Function Orientation: Person, Place, Situation, Time Memory: Intact Attention: WNL Concentration: WNL Association: WNL Fund of Knowledge: Poor - Mood Mood: Depressed, Anxious - Affect Affect: Constricted, Depressed - Speech Speech: Soft - Formal Thought Process Formal Thought Process: Hallucinations, Paranoia - Suicidal Ideation Suicidal Ideation: No - Homicidal Ideation Homicidal Ideation: No Goal/Treatment Plan - Goal/Treatment Plan Need for Continued Stay: Discharge may exacerbated symptoms, Severe functional impairment Progress Toward Problem(s) and Goals/Treatment Plan: -Schizoaffective disorder bipolar type CBT Psychoeducation Supportive therapy, group therapy, individual therapy Haldol 10 mg PO BID Seroquel 100 mg PO Daily Seroquel 200 mg by mouth daily at bedtime Trazodone 200 mg by mouth daily at bedtime Benztropine 1 mg by mouth twice a day Sertraline 100 mg PO Daily [place] 300 mg PO BID -Alcohol use disorder severe -Alcohol withdrawal uncomplicated CBT Psychoeducation Supportive therapy, individual therapy Librium when necessary Librium taper Folic acid/thiamine/multivitamin Estimated Date of D/C: 05/21/17 - Smoking Cessation Smoking Cessation Initiated: No
[2017-05-21 07:41] VITALS: BP 100/70; PULSE 91; RESP 18; TEMP 98.7
--- NOTE | 2017-05-21 10:10 | PCM.PYCHDC ---
Mental Status Examination - Mental Status Examination Orientation: Person, Place, Situation, Time Memory: Intact Mood: Neutral Affect: Constricted Speech: Soft Attention: WNL Concentration: WNL Association: WNL Fund of Knowledge: WNL Formal Thought Process: No Impairment Description of patient's judgement and insight: good, fair Psychotic Thoughts and Behaviors: denies any AVH Suicidal Ideation: No Current Homicidal Ideation?: No Discharge Summary - Discharge Note Reason for Hospitalization: Patient is a 57 y.o. M admitted for depression and suicidal ideations. Patient left the psychiatric unit on Friday05/06/17 after being treated for shiczoaffective disorder. Patient reports feeling ready to leave when he left the hospital but realized he was not after he left. Patient reports that he stopped taking medication after 2 days. When asked why, the patient said on Friday he went for a screening and they gave him an appointment with a psychiatrist on 05/22/17 and he felt that was too far away. Patient reports feeling nothing was getting done because he wanted to attend rehab and see a psychiatrist after he left the hospital last time but that did not happen. Patient began feeling "emotionally depressed" and stopped taking his medications. Patient relapsed on drinking on Friday05/09/17, 8-10 25 oz beer can and a pint of vodka every day, last consumption of alcohol was yesterday. Patient lives with daughter. and another daughter in 2012 29 days apart. Patient started hearing voices of his and daughter on Friday05/10/17 and they told him to kill himself and get it over with. Patient's daughter found him on Friday05/11/17 with a "bunch of pills" in his hands as patient was attempting suicide. Patient's daughter called for an ambulance yesterday because she "was tired of her father." Patient is isolated and withdrawn. Patient reports SI and auditory hallucinations currently and feelings of hopelessness and helplessness. Patient reports racing thoughts such as "really need help" "nobody is helping" and "I want help" and says he wants to "give up" since no one is helping. Patient has hand tremors and complains of joint pain. Patient reports being irritated and anxious. Patient reports visual hallucinations yesterday but not currently. Patient reports feelings of his daughter and following him and "haunting" him. Patient denies any drug use. Consultations:: List each consultation separately and include: 1. Reason for request. 2. Findings. 3. Follow-up Summary of Hospital Course include:: 1. Description of specific treatment plan utilized for patients during their course of treatmen. 2. Summarize the time- course for resolution of acute symptoms and/or regressed behaviors. 3. Describe issues identified and worked on during hospitalization. 4. Describe medication utilized. 5. Describe medical problems identified and treated. 6. Reassessment of suicide risk Summary of Hospital Course: During the course of his stay, patient (pt) started progressively improving and he no longer remained irritable, depressed, paranoid and suicidal. His mood and paranoia were improved and he started attending groups and meetings and started socializing. Patient denied any feelings of hopelessness, helplessness, and worthlessness, denied any problem with the sleep or appetite, denied suicidal ideation or homicidal ideation. Pt denied any auditory or visual hallucinations. Some changes were made in his current medications and patient was discharged on following medications. He tolerated these medications very well and denied any side effects. CBT and IL were used. patient was [facility]. - Diagnosis (1) Schizoaffective disorder Status: Acute (2) Alcohol use disorder, severe, dependence Status: Acute - Final Diagnosis (DSM 5) Condition upon Discharge: STABLE DSM 5: -Schizoaffective disorder bipolar type -Alcohol use disorder severe -Alcohol withdrawal uncomplicated Disposition: HOME/ ROUTINE Follow-up Treatment Plan: Education: Pt was educated and counseled about the risks and benefits of taking and not taking medications. Pt was educated and counseled about the risks of drinking and abusing drugs. Pt was educated and counseled to go to the ER or call 911 if pt develop suicidal ideation or homicidal ideation, worsening of symptoms or severe side effects of the meds. Prescriptions/Medication Reconciliation: Albuterol HFA [Ventolin HFA 90 mcg/actuation (8 g)] 1 puff INH RQ4 PRN #1 inhaler PRN Reason: Shortness Of Breath amLODIPine [Norvasc] 5 mg PO DAILY #30 tab Aspirin [Ecotrin] 81 mg PO DAILY #30 Benztropine [Cogentin] 1 mg PO BID #60 tab Famotidine [Pepcid] 20 mg PO BID #60 tab Haloperidol [Haldol] 10 mg PO BID #60 tab levETIRAcetam [Keppra] 250 mg PO BID #60 tab Metoprolol Tartrate [Lopressor] 50 mg PO BID #60 tab QUEtiapine [Seroquel] 200 mg PO HS #30 tab Sertraline [Zoloft] 100 mg PO DAILY #30 tab traZODone [Desyrel] 100 mg PO HS PRN #60 tab PRN Reason: Insomnia - Smoking Cessation Smoking Cessation Medication prescribed: No - Antipsychotic Medications Pt discharged on 2 or more routine antipsychotic medications: No
[2017-05-21] MEDS: Multiple Vitamins Tab PO SCH (10:15)
== END 2017-05-21 11:55 | disposition home or self-care (01) | DRG 430 ==
LOC: C.ER 11:50 → C.5E 18:33
PROC: GZ3ZZZZ Medication Management (ICD-10-PCS; principal; 2017-05-12)
PROC: GZHZZZZ Group Psychotherapy (ICD-10-PCS; 2017-05-12)
PROC: GZ56ZZZ Individual Psychotherapy, Supportive (ICD-10-PCS; 2017-05-12)
PROC: HZ2ZZZZ Detoxification Services for Substance Abuse Treatment (ICD-10-PCS; 2017-05-12)
PROC: HZ59ZZZ Individual Psychotherapy for Substance Abuse Treatment, Supportive (ICD-10-PCS; 2017-05-12)
DX: F25.0 Schizoaffective disorder, bipolar type (principal); R45.851 Suicidal ideations; F10.239 Alcohol dependence with withdrawal, unspecified; J45.909 Unspecified asthma, uncomplicated; I10 Essential (primary) hypertension; E78.5 Hyperlipidemia, unspecified; Z87.11 Personal history of peptic ulcer disease